=== PATIENT | male | born 1975 | race Caucasian/White ===

== ENCOUNTER 2017-11-07 23:01 | Emergency (ER) | payer MEDICAID ==
--- NOTE | 2017-11-07 23:43 | ED Physician Chart ---
ED Chief Complaint/HPI - Patient Information Date Seen:: 11/07/17 Time Seen:: 23:41 Chief Complaint:: Left knee pain History of Present Illness:: 42 yo male had left knee pain and swelling for 3 weeks. He denied history of trauma but he had left knee surgery in the past. His eye appeared to be red. Allergies:: Allergies Allergy/AdvReac Type Severity Reaction Status Date / Time No Known Allergies Allergy Verified 11/07/17 23:31 Vitals:: Vital Signs - 8 hr 11/07/17 23:10 Temp 98.0 F HR 130 RR 18 BP 120/93 ED Review of Systems - Review of Systems General/Constitutional: No fever, No chills Skin: No skin lesions Head: No headache Eyes: No pain ENT: No earache Neck: No neck pain Cardio Vascular: No chest pain Pulmonary: No SOB GI: No nausea, No vomiting Musculoskeletal: Bone or joint pain Neurological: No focal symptoms ED Past Medical History - Past Medical History Past Medical History: No significant medical hx Social History: Smoker, No Alcohol, Illicit Drug Use Surgical History: other (left knee surgery) Family Medical History - Family Member Mother History Unknown: Yes ED Physical Exam - Physical Examination Head: Atraumatic Eyes: PERRL Other Eyes comments:: conjunctiva erythema Skin: No skin lesions ENMT: Nasal exam nl Neck: No nuchal rigidity Respiratory: No Wheeze/Rhonchi/Rales Cardio Vascular: RRR, No murmur, gallop, rubs, NL S1 S2 GI: No tenderness/rebounding/guarding Extremities: normal strength in all extremities Neuro/Psych: No focal deficits ED Labs/Radiology/EKG Results - Lab Results Results: Laboratory Last Values WBC 11.0 Th/cmm (4.8-10.8) H 11/07/17 22:48 RBC 5.09 Mil/cmm (4.30-5.70) 11/07/17 22:48 Hgb 15.6 gm/dL (12-16) 11/07/17 22:48 Hct 45.8 % (41.0-60) 11/07/17 22:48 MCV 90.1 fl (80-99) 11/07/17 22:48 MCH 30.6 pg (26.0-30.0) H 11/07/17 22:48 MCHC Differential 34.0 pg (28.0-36.0) 11/07/17 22:48 RDW 13.0 % (11.5-20.0) 11/07/17 22:48 Plt Count 360 Th/cmm (150-400) 11/07/17 22:48 MPV 7.6 fl 11/07/17 22:48 Band Neutrophils % 1 % (0-10) 11/07/17 22:48 Neutrophils (Manual) 72 % (40-80) 11/07/17 22:48 Lymphocytes 21 % (20-50) 11/07/17 22:48 Monocytes 6 % (2-10) 11/07/17 22:48 Platelet Estimate ADEQUATE (NORMAL) 11/07/17 22:48 Sodium 139 mEq/L (136-145) 11/07/17 22:48 Potassium 3.9 mEq/L (3.5-5.1) 11/07/17 22:48 Chloride 103 mEq/L (98-107) 11/07/17 22:48 Carbon Dioxide 26.9 mEq/L (21.0-31.0) 11/07/17 22:48 Anion Gap 13.0 (7.0-16.0) 11/07/17 22:48 BUN 20 mg/dL (7-25) 11/07/17 22:48 Creatinine 1.1 mg/dL (0.7-1.3) 11/07/17 22:48 Est GFR ( Amer) > 60.0 ml/min (>90) 11/07/17 22:48 Est GFR (Non-Af Amer) > 60.0 ml/min 11/07/17 22:48 BUN/Creatinine Ratio 18.2 11/07/17 22:48 Glucose 108 mg/dL (70-105) H 11/07/17 22:48 Calcium 9.7 mg/dL (8.6-10.3) 11/07/17 22:48 Total Bilirubin 0.8 mg/dL (0.3-1.0) 11/07/17 22:48 AST 16 U/L (13-39) 11/07/17 22:48 ALT 30 U/L (7-52) 11/07/17 22:48 Alkaline Phosphatase 73 U/L (34-104) 11/07/17 22:48 Total Protein 7.5 gm/dL (6.0-8.3) 11/07/17 22:48 Albumin 4.5 gm/dL (4.2-5.5) 11/07/17 22:48 Globulin 3.0 gm/dL 11/07/17 22:48 Albumin/Globulin Ratio 1.5 (1.0-1.8) 11/07/17 22:48 Urine Source RANDOM 11/07/17 23:40 Urine Color ORANGE 11/07/17 23:40 Urine Clarity HAZY (CLEAR) 11/07/17 23:40 Urine pH 6.0 (4.6 - 8.0) 11/07/17 23:40 Ur Specific [place] >= 1.030 (1.005-1.030) 11/07/17 23:40 Urine Protein 30 mg/dL (NEGATIVE) H 11/07/17 23:40 Urine Glucose (UA) NEGATIVE mg/dL (NEGATIVE) 11/07/17 23:40 Urine Ketones NEGATIVE mg/dL (NEGATIVE) 11/07/17 23:40 Urine Blood TRACE (NEGATIVE) 11/07/17 23:40 Urine Nitrate NEGATIVE (NEGATIVE) 11/07/17 23:40 Urine Bilirubin SMALL (NEGATIVE) H 11/07/17 23:40 Urine Ictotest NEGATIVE (NEGATIVE) 11/07/17 23:40 Urine Urobilinogen 0.2 E.U./dL (0.2 - 1.0) 11/07/17 23:40 Ur Leukocyte Esterase NEGATIVE (NEGATIVE) 11/07/17 23:40 Urine RBC 2-5 /hpf (0-5) H 11/07/17 23:40 Urine WBC 0-2 /hpf (0-5) 11/07/17 23:40 Ur Epithelial Cells OCCASIONAL /lpf (FEW) 11/07/17 23:40 Urine Bacteria OCCASIONAL /hpf (NONE SEEN) 11/07/17 23:40 Urine Sperm FEW /hpf (NONE SEEN) 11/07/17 23:40 Urine Opiates Screen NEGATIVE (NEGATIVE) 11/07/17 23:40 Urine Methadone Screen NEGATIVE (NEGATIVE) 11/07/17 23:40 Ur Barbiturates Screen NEGATIVE (NEGATIVE) 11/07/17 23:40 Ur Tricyclics Screen NEGATIVE (NEGATIVE) 11/07/17 23:40 Ur Phencyclidine Scrn NEGATIVE (NEGATIVE) 11/07/17 23:40 Amphetamines Screen POSITIVE (NEGATIVE) H 11/07/17 23:40 U Methamphetamines Scrn POSITIVE (NEGATIVE) H 11/07/17 23:40 U Benzodiazepines Scrn POSITIVE (NEGATIVE) H 11/07/17 23:40 U Cocaine Metab Screen NEGATIVE (NEGATIVE) 11/07/17 23:40 U Cannabinoids Screen NEGATIVE (NEGATIVE) 11/07/17 23:40 Ethyl Alcohol < 10 mg/dL (0-10) 11/07/17 22:48 - Radiology Results Results: CXR: no consolidation Lef knee X ray: post surgical change, no acute abnormality ED Assessment - Assessment General Assessment: Leukocytosis Substance abuse Assessment/Comments:: CBC, CMP CXR, Left knee X ray Rocephin NS 1L IV bolus D/c home ED Septic Shock - . Is Septic Shock (SBP<90, OR Lactate>4 mmol\L) present?: No - <6hrs of presentation: Vital Signs: Vital Signs - 8 hr 11/07/17 23:10 Temp 98.0 F HR 130 RR 18 BP 120/93 ED Reassessment (Disposition) - Reassessment Reassessment Condition:: Improved - Patient Disposition Discharge/Transfer:: Home ED Discharge Plan - Patient Disposition Admit/Discharge/Transfer: PT DISCHARGED HOME Instructions: Polysubstance Abuse Additional Instructions: STOP TAKING ILLEGAL DRUGS. keep yourself hydrated by drinking plenty of water.
[2017-11-07 23:57] LABS: URINE MICROSCOPIC INDICATED? YES; URINE SOURCE RANDOM
[2017-11-08 00:03] LABS: HEMATOCRIT 45.8 % (41.0-60); HEMOGLOBIN 15.6 gm/dL (12-16); MEAN CELL VOLUME 90.1 fl (80-99); MEAN CORPUSCULAR HEMOGLOBIN 30.6 pg (26.0-30.0); MEAN PLATELET VOLUME 7.6 fl; PLATELET COUNT 360 Th/cmm (150-400); RED BLOOD COUNT 5.09 Mil/cmm (4.30-5.70)
[2017-11-08 00:10] LABS: URINE BILIRUBIN SMALL (NEGATIVE); URINE BLOOD TRACE (NEGATIVE); URINE GLUCOSE (UA) NEGATIVE (NEGATIVE); URINE KETONE NEGATIVE (NEGATIVE); URINE LEUKOCYTE ESTERASE NEGATIVE (NEGATIVE); URINE NITRATE NEGATIVE (NEGATIVE); URINE PROTEIN 30 mg/dL (NEGATIVE); URINE UROBILINOGEN 0.2 E.U./dL (0.2 - 1.0)
[2017-11-08 00:11] LABS: URINE CLARITY HAZY (CLEAR); URINE COLOR ORANGE
[2017-11-08 00:18] LABS: ALB/GLOB RATIO 1.5 (1.0-1.8); ALBUMIN 4.5 gm/dL (4.2-5.5); ALKALINE PHOSPHATASE 73 U/L (34-104); BILIRUBIN,TOTAL 0.8 mg/dL (0.3-1.0); BUN - UREA NITROGEN 20 mg/dL (7-25); CALCIUM SERUM 9.7 mg/dL (8.6-10.3); CARBON DIOXIDE 26.9 mEq/L (21.0-31.0); CHLORIDE 103 mEq/L (98-107); CREATININE - SERUM 1.1 mg/dL (0.7-1.3); GFR AFRICAN-AMERICAN > 60.0 ml/min (>90); GFR NON AFRICAN-AMERICAN > 60.0 ml/min; GLUCOSE 108 mg/dL (70-105); POTASSIUM SERUM 3.9 mEq/L (3.5-5.1); SGOT 16 U/L (13-39); SGPT/ALT 30 U/L (7-52); SODIUM SERUM 139 mEq/L (136-145); TOTAL PROTEIN,SERUM 7.5 gm/dL (6.0-8.3)
[2017-11-08 00:22] LABS: URINE BACTERIA OCCASIONAL /hpf (NONE SEEN); URINE EPITHELIAL CELLS OCCASIONAL /lpf (FEW); URINE ICTOTEST NEGATIVE (NEGATIVE); URINE SPERM FEW /hpf (NONE SEEN); URINE WBC 0-2 /hpf (0-5)
[2017-11-08 00:25] LABS: AMPHETAMINE URINE POSITIVE (NEGATIVE); BARBITURATES URINE NEGATIVE (NEGATIVE); COCAINE METABOLITE QUAL URINE NEGATIVE (NEGATIVE); METHAMPHETAMINES QUAL URINE POSITIVE (NEGATIVE); OPIATES (MORPHINE) QUAL. URINE NEGATIVE (NEGATIVE); PHENCYCLIDINE (PCP) URINE NEGATIVE (NEGATIVE); TRICYCLICS (TCA) QUAL. URINE NEGATIVE (NEGATIVE)
[2017-11-08 00:26] LABS: BENZODIAZEPINES QUAL URINE POSITIVE (NEGATIVE); CANNABINOID THC NEGATIVE (NEGATIVE); METHADONE URINE NEGATIVE (NEGATIVE)
[2017-11-08] MEDS ORDERED: cefTRIAXone 1 GM in Sodium Chloride 0.9% 50 ML IV ONE (00:30)
[2017-11-08] MEDS ORDERED: Sodium Chloride 0.9% 1,000 ML IV ONE (00:31)
[2017-11-08 00:32] LABS: BAND NEUTROPHILE 1 % (0-10); LYMPHOCYTE 21 % (20-50); MONOCYTE 6 % (2-10); NEUTROPHILS 72 % (40-80); PLATELET ESTIMATE ADEQUATE (NORMAL); TOTAL CELLS COUNTED 100
--- NOTE | 2017-11-08 07:56 | Diagnostic Imaging Report ---
CHEST X-RAY: AP view INDICATION: Shortness of breath COMPARISON: None FINDINGS: There is no focal consolidation or pleural effusions The heart is normal in size. The osseous structures demonstrate no acute abnormalities. IMPRESSION: No focal consolidation or evidence of CHF.
--- NOTE | 2017-11-08 08:07 | Diagnostic Imaging Report ---
Left knee (2 views) HISTORY: Pain 2 orthopedic fixation screws traverse the patella. No acute bony abnormalities. No fractures. Generalized joint space narrowing. Spur formation noted about the medial tibial plateau and medial tibial spine. Degenerative changes noted along the posterior margin of the patella. IMPRESSION: 1. No acute bony abnormalities 2. Degenerative changes 3. Surgical changes
== END 2017-11-08 01:30 | disposition home or self-care (01) ==
LOC: ER 23:01
DX: M25.562 Pain in left knee (principal); F17.200 Nicotine dependence, unspecified, uncomplicated
CPT/HCPCS: 99285; 96365; 93005; 36415; 80307; 85007; 85027; 81001; 80320; 80053; 71045; 73560; J0696; 81003-TC; 85025-TC; J7030